=== PATIENT | female | born 1990 | race Caucasian/White ===

== ENCOUNTER 2023-02-10 12:37 | Outpatient (CLI) | payer OTHER, SELFPAY | END 2023-02-10 12:38 | disposition home or self-care (01) | PROVIDERS: Visit Provider Physician Assistant | DX: Z01.419 Encounter for gynecological examination (general) (routine) without abnormal findings (principal); E66.01 Morbid (severe) obesity due to excess calories; Z13.6 Encounter for screening for cardiovascular disorders; Z13.1 Encounter for screening for diabetes mellitus; Z13.29 Encounter for screening for other suspected endocrine disorder | CPT/HCPCS: 80061; 82947; 84443 ==

== ENCOUNTER 2023-06-10 11:58 | Outpatient (CLI) | payer OTHER, SELFPAY | END 2023-06-10 11:59 | disposition home or self-care (01) | LOC: NFLDREF 06-11 16:18 | PROVIDERS: Visit Provider Physician Assistant | DX: Z31.41 Encounter for fertility testing (principal) | CPT/HCPCS: 82670; 83001; 83498; 83520; 84146; 84443 ==

== ENCOUNTER 2023-06-10 12:04 | Outpatient (CLI) | payer OTHER, SELFPAY ==
--- NOTE | 2023-06-10 12:15 | CRLHL7_ITS ---
For Patients: As a result of the Century Cures Act, medical imaging exams and procedure reports are released immediately into your electronic medical record. You may view this report before your referring provider. If you have questions, please contact your health care provider. INDICATION: Infertility. TECHNIQUE: Transabdominal and transvaginal pelvic ultrasound. FINDINGS: Uterus is retroverted and measures 8.1 x 4.3 x 4.7 cm. Endometrial stripe thickness is 8 mm. Both ovaries appear normal and have normal color and spectral Doppler flow. Benign 2.4 cm left paraovarian cyst. No free fluid. IMPRESSION: Normal pelvic ultrasound. Dictated by Niles Du MD @ 06/10/2023 3:46:31 PM (Electronically Signed)
== END 2023-06-10 12:05 | disposition home or self-care (01) ==
LOC: US 12:04
PROVIDERS: Visit Provider Physician Assistant
DX: Z31.69 Encounter for other general counseling and advice on procreation (principal)
CPT/HCPCS: 76830; 76856

== ENCOUNTER 2023-06-27 10:02 | Outpatient (CLI) | payer OTHER, SELFPAY | END 2023-06-27 10:03 | disposition home or self-care (01) | LOC: NFLDREF 07-01 13:56 | PROVIDERS: Visit Provider Physician Assistant | DX: Z31.9 Encounter for procreative management, unspecified (principal) | CPT/HCPCS: 84144 ==

== ENCOUNTER 2023-07-14 10:58 | Outpatient (CLI) | payer OTHER, SELFPAY | END 2023-07-14 10:59 | disposition home or self-care (01) | PROVIDERS: Visit Provider Physician Assistant | DX: O20.9 Hemorrhage in early pregnancy, unspecified (principal) | CPT/HCPCS: 84702; 86850; 86900; 86901 ==